=== PATIENT | male | born 1940 | race African-American/Black ===

== ENCOUNTER 2022-04-12 00:21 | Observation (INO) ==
[2022-04-12] MEDS ORDERED: Lidocaine -MPF 2% 5 ML VIAL ONE (07:02)
[2022-04-12] MEDS ORDERED: *HR* Succinylcholine 200 MG/10 ML VIAL IVP ONE (07:02)
[2022-04-12] MEDS ORDERED: *HR* Propofol 200 MG/20 ML VIAL IVP ONE (07:02)
[2022-04-12] MEDS ORDERED: *HR* FentaNYL (PF) 100 MCG/2 ML VIAL ONE (07:02)
[2022-04-12] MEDS ORDERED: Ondansetron 4 MG/2 ML VIAL ONE (07:02)
[2022-04-12] MEDS ORDERED: Iopamidol - 370 500 ML MLS IVP ONE (08:08)
[2022-04-12 08:51] LABS: Basophils % 0.2 %; Eosinophils # 0.1 K/mcL (0.0-0.6); Eosinophils % 2.4 %; Hematocrit 31.4 % (37.5-50.1); Hemoglobin 9.7 g/dL (12.9-16.9); Immature Granulocytes % 0.4 % (0-4); Lymphocytes # 1.1 K/mcL (0.6-4.6); Lymphocytes % 22.6 %; Mean Corpuscular HGB Conc 30.9 g/dL (31.6-35.5); Mean Corpuscular Hemoglobin 22.7 pg (28.0-33.3); Mean Corpuscular Volume 73.4 fL (83.0-100.0); Mean Platelet Volume 11.3 fL (9.4-12.4); Monocytes # 0.7 K/mcL (0.0-1.3); Monocytes % 13.7 %; Platelet Count 183 K/mcL (140-400); Red Blood Count 4.28 M/mcL (4.19-5.50); Red Cell Distribution Width 13.9 % (11.5-14.5); Segmented Neutrophils % 60.7 %
[2022-04-12 09:11] LABS: Calcium 8.4 mg/dL (8.6-10.3); Potassium 3.7 mEq/L (3.5-5.1)
[2022-04-12] MEDS ORDERED: 0.9 % Sodium Chloride 1,000 ML IVC ONE (09:17)
[2022-04-12] MEDS ORDERED: Piperacillin/Tazobactam 3.375 GM in 0.9 % Sodium Chloride Mini Bag 100 ML IVPB ONE (09:56)
[2022-04-12] MEDS ORDERED: Naloxone 0.4 MG/ML INJ IVP PRN (11:25)
[2022-04-12] MEDS ORDERED: Ondansetron 4 MG/2 ML VIAL IVP PRN (11:25)
[2022-04-12] MEDS ORDERED: D5% in Water 1,000 ML IVC PRN (11:31)
[2022-04-12] MEDS ORDERED: *HR* Dextrose 50 % in Water (Syg) 50 ML SYRINGE IVP PRN (11:31)
[2022-04-12] MEDS ORDERED: Dextrose Gel 15 GM/37.5 ML TUBE PO PRN ×2 (11:31)
[2022-04-12] MEDS: Dexamethasone Sodium Phos/PF 10 MG/ML VIAL IVP SCH ×2 (13:37→22:17)
[2022-04-12] MEDS: *HR* Heparin 5,000 UNIT/ML VIAL SQ SCH ×2 (13:38→20:41)
[2022-04-12] MEDS: Insulin LISPRO 300 UNITS/3 ML VIAL SUBQ SCH ×2 (13:38→17:05)
[2022-04-12] MEDS: Ipratropium 1 PUFF INHALER IH SCH ×3 (14:01→20:05)
[2022-04-12 14:18] LABS: Estimated Average Glucose 189 mg/dl; Hemoglobin A1C 8.2 %
[2022-04-12] MEDS ORDERED: *HR* Labetalol 20 MG/4 ML SYRINGE IVP ONE ×2 (16:24→23:51)
[2022-04-12] MEDS ORDERED: *HR* Metoprolol 5 MG/5 ML VIAL IVP ONE (16:44)
[2022-04-12] MEDS: *HR* Metoprolol 5 MG/5 ML VIAL IVP SCH ×2 (18:28→20:41)
[2022-04-12 18:38] LABS: VBG Ionized Calcium 1.02 mmol/L (1.15-1.35)
[2022-04-12] MEDS ORDERED: amLODIPine 5 MG TABLET PO SCH (23:15)
[2022-04-12] MEDS: Valsartan 80 MG TABLET PO SCH (23:56)
[2022-04-13] MEDS: Insulin LISPRO 300 UNITS/3 ML VIAL SUBQ SCH ×4 (00:15→17:03)
[2022-04-13] MEDS: Ipratropium 1 PUFF INHALER IH SCH ×5 (00:58→15:20)
[2022-04-13 05:33] LABS: Hematocrit 30.3 % (37.5-50.1); Hemoglobin 9.3 g/dL (12.9-16.9); Immature Granulocytes % 0.3 % (0-4); Lymphocytes % 14.9 %; Mean Corpuscular HGB Conc 30.7 g/dL (31.6-35.5); Mean Corpuscular Hemoglobin 22.1 pg (28.0-33.3); Mean Corpuscular Volume 72.1 fL (83.0-100.0); Mean Platelet Volume 11.2 fL (9.4-12.4); Monocytes # 0.4 K/mcL (0.0-1.3); Monocytes % 5.5 %; Neutrophils # 5.1 K/mcL (1.6-8.9); Platelet Count 206 K/mcL (140-400); Red Cell Distribution Width 13.7 % (11.5-14.5); Segmented Neutrophils % 79.3 %; White Blood Count 6.4 K/mcL (4.3-11.1)
[2022-04-13 05:51] LABS: Calcium 8.7 mg/dL (8.6-10.3); Potassium 3.6 mEq/L (3.5-5.1)
[2022-04-13] MEDS: Dexamethasone Sodium Phos/PF 10 MG/ML VIAL IVP SCH ×2 (06:04→12:13)
[2022-04-13] MEDS: *HR* Metoprolol 5 MG/5 ML VIAL IVP SCH ×3 (06:04→17:03)
[2022-04-13] MEDS: *HR* Heparin 5,000 UNIT/ML VIAL SQ SCH (06:05)
[2022-04-13] MEDS ORDERED: Aspirin Enteric Coated 81 MG Tablet PO SCH (09:00)
[2022-04-13] MEDS ORDERED: amLODIPine 5 MG TABLET PO SCH (09:00)
[2022-04-13] MEDS ORDERED: NON-FORMULARY MEDICATION 1 EACH EACH (Glucosamine/D3/Boswellia Serra [Osteo Bi-Flex Tablet PO SCH (09:00)
[2022-04-13] MEDS ORDERED: Metoprolol XL (24 HR) Succ 50 MG TAB.ER.24H PO SCH (09:00)
[2022-04-13] MEDS ORDERED: NON-FORMULARY MEDICATION 1 EACH EACH (Ubidecarenone [Coq10] 50 MG Tab.Chew) PO SCH (09:00)
[2022-04-13] MEDS ORDERED: D5% in Water 1,000 ML IVC PRN (10:11)
[2022-04-13] MEDS ORDERED: *HR* Dextrose 50 % in Water (Syg) 50 ML SYRINGE IVP PRN (10:11)
[2022-04-13] MEDS ORDERED: Dextrose Gel 15 GM/37.5 ML TUBE PO PRN ×2 (10:11)
[2022-04-13] MEDS: Valsartan 80 MG TABLET PO SCH (10:52)
[2022-04-13 16:16] VITALS: BP 155/66; PULSE 68; TEMP 98.4; O2SAT 97
[2022-04-14] MEDS ORDERED: *HR* Enoxaparin 40 MG/0.4 ML SYRINGE SQ SCH (06:00)
[2022-04-14] MEDS ORDERED: *HR* Enoxaparin 30 MG/0.3 ML SYRINGE SQ SCH (06:00)
== END 2022-04-13 18:47 | disposition left against medical advice (07) ==
LOC: 3NENU 00:21 → EMEROOARM 00:21 → SUATTDRO 10:49 → 3NENU 12:52
PROVIDERS: ADMIT General Practice; ATTEND Internal Medicine